=== PATIENT | female | born 1965 | race Caucasian/White ===

== ENCOUNTER 2017-08-19 13:36 | Day surgery (SDC) | payer OTHER ==
[~2017-08-19] VITALS: Ht 165.1 cm; Wt 92.6 kg
[2017-08-19 15:46] VITALS: Ht 165.1 cm; Wt 92.6 kg
[2017-08-19] MEDS ORDERED: NO HOME MEDS (16:00)
[2017-08-19 17:31] VITALS: BP 135/80; PULSE 69; RESP 18
[2017-08-19] MEDS ORDERED: MIDAZOLAM 1 MG/ML 2 ML INJ ONE ×3 (17:55)
[2017-08-19] MEDS ORDERED: FENTAnyl 50 MCG/ML VIAL ONE ×2 (17:56→17:57)
--- NOTE | 2017-08-19 18:06 | OPPN ---
Date/Time of Note Date/Time of Note DATE: 08/19/17 TIME: 18:03 Proc Note GI Procedure Date 08/19/17 Indication: other (Colorectal cancer screening) Pre-procedure Diagnosis Colorectal cancer screening Post-procedure Diagnosis Impression: Diverticulosis left colon, moderate Moderate-sized internal hemorrhoids Otherwise normal colonoscopy Plan: Follow up as scheduled] High fiber diet Annual hemoccult stool testing [Screening colonoscopy in 10 years] . Procedure Performed: Colonoscopy Surgeon CHON GUNTER MD See signature line Chemical Worker none Anesthesia Type: moderate sedation (Vistaril 4 mg/fentanyl 75 mcg) Tourniquet Time none EBL none Transfusion required none Biopsy 1: None Grafts/Implants none Tubes/Drains none Complication(s) none Disposition: home Procedure Description After informed consent, with the patient/relatives understanding the procedure, its indications and potential risks and complications, including but not limited to: Allergic reaction, bleeding, perforation, infection, and after all pertinent questions were answered to the patient's satisfaction, the patient/ relatives signed the witnessed informed consent. Following this, premedication was administered slowly IV push under careful cardiovascular and respiratory monitoring with pulse OX[employer], automatic blood pressure, and ekg monitor. Once the sedative effect was achieved, the patient was placed in the left lateral decubitus position, digital rectal examination was performed. The colonoscope was then introduced and advanced under visual control throughout all segments of the colon including: []the rectum, sigmoid, descending colon, splenic flexure, transverse colon, hepatic flexure, ascending colon and finally reaching the cecum which was clearly identified by transillumination, finger indentation and the ileocecal valve. Careful examination of the mucosa of the lower gastrointestinal tract both on insertion as well as withdrawal of the instrument disclosed the following findings: PREPARATION QUALITY: [Adequate], RECTAL EXAM: The anorectal area was visualized examined and digital rectal examination performed with the following findings: No evidence of perirectal disease, no masses. COLONIC MUCOSA: The mucosa of all segments of the colon was carefully examined and showed the following findings: There is moderate diverticulosis of the left side of the colon. Moderate-sized internal hemorrhoids are noted. Otherwise the examined mucosa appears within normal limits. There is no evidence of inflammatory changes, diverticular formation, polyps or other neoplasms, vascular malformation, or any other abnormality. The instrument was then withdrawn, the patient tolerated the procedure well and was transferred out of the Endoscopy Suite awake and in good condition to continue recovery under observation. Copies To: CC: CHON GUNTER MD, MORDO MD Aug 19, 2017 18:06
[2017-08-19 18:25] VITALS: BP 120/79; PULSE 72; RESP 18
== END 2017-08-19 19:08 | disposition home or self-care (01) ==
LOC: GIL 13:36
PROVIDERS: ATTEND Internal Medicine Gastroenterology
DX: Z12.11 Encounter for screening for malignant neoplasm of colon (principal); K64.4 Residual hemorrhoidal skin tags; K57.90 Diverticulosis of intestine, part unspecified, without perforation or abscess without bleeding
CPT/HCPCS: 45378; J2250; J3010; Z7610

== ENCOUNTER 2018-01-29 22:05 | Emergency (ER) | END 2018-01-30 00:39 | disposition home or self-care (01) ==